=== PATIENT | female | born 2000 | race Caucasian/White ===

== ENCOUNTER 2019-04-25 20:32 | Emergency (ER) | payer OTHER ==
[~2019-04-25] VITALS: Ht 157.5 cm; Wt 61.0 kg
[~2019-04-25 20:32] MED LIST: ALLEGRA60 MG PO; AMOXICILLI400 MG/5 M PO; AMOXICILLIN500 MG PO; NEXIUM40 MG PO; SINGULAIR PO; ZOFRAN4 MG/TAB PO; ZYRTEC10 M1 OR
[2019-04-25 20:52] LABS: URINE BILIRUBIN - DIPSTICK NEGATIVE (NEGATIVE); URINE BLOOD DIPSTICK NEGATIVE (NEGATIVE); URINE COLOR YELLOW; URINE GLUCOSE - DIPSTICK NEGATIVE (NEGATIVE); URINE KETONE NEGATIVE (NEGATIVE); URINE NITRITE - DIPSTICK NEGATIVE (Negative); URINE PH 5.5 (4.5-8.0); URINE PROTEIN - DIPSTICK TRACE mg/dL (NEG-TRACE); URINE SPECIFIC GRAVITY 1.025; URINE UROBILINOGEN - DIPSTICK 0.2 E.U./dL (0.2)
[2019-04-25 20:54] LABS: URINE LEUK ESTERASE SMALL (NEGATIVE)
[2019-04-25 21:12] LABS: URINE BACTERIA MODERATE hpf; URINE SQUAMOUS EPITHELIAL CELL FEW EPI/hpf (0-FEW); URINE WBC 20-50 WBC/hpf (0-5)
[2019-04-25 21:13] VITALS: BP 122/74
[2019-04-25] MEDS ORDERED: KEFLEX500 M1 PO (21:13)
[2019-04-25] MEDS ORDERED: PYRIDIUM200 MG PO (21:13)
== END 2019-04-25 21:19 | disposition home or self-care (01) | DRG 690 ==
LOC: ED 20:32
DX: N39.0 Urinary tract infection, site not specified (principal); B95.7 Other staphylococcus as the cause of diseases classified elsewhere